=== PATIENT | female | born 1970 | race Caucasian/White ===

== ENCOUNTER → 2019-10-29 | Outpatient (CLI) | payer BC ==
[~2019-10-29] MED LIST: CRANBERRY250 MG PO; HYDCHL25 PO; HYDR1TAB94 PO; Hair, Skin & N1 EACH PO; Percocet 7.5-31 EACH PO
[2019-10-29 10:46] LABS: BASOPHILS ABSOLUTE AUTO 0.03 K/mm3 (0.00-0.23); BASOPHILS PERCENT AUTO 0 % (0-2); EOSINOPHILS PERCENT AUTO 3 % (0-6); Hematocrit 35.1 % (33.0-51.0); Hemoglobin 11.1 g/dL (11.5-16.0); IMMATURE GRAN ABSOLUTE AUTO 0.02 K/mm3 (0.00-0.10); IMMATURE GRAN PERCENT AUTO 0 % (0-1); LYMPHOCYTES ABSOLUTE AUTO 1.39 K/mm3 (0.84-5.20); LYMPHOCYTES PERCENT AUTO 17 % (21-46); MONOCYTES ABSOLUTE AUTO 0.35 K/mm3 (0.16-1.47); MONOCYTES PERCENT AUTO 4 % (4-13); Mean Corpuscular HGB 25.3 pg (26.0-34.0); Mean Corpuscular HGB Conc 31.6 g/dL (31.5-36.5); Mean Corpuscular Volume 80 fL (80-100); Mean Platelet Volume 9.8 fL (9.1-12.4); NEUTROPHILS ABSOLUTE AUTO 6.02 K/mm3 (1.96-9.15); NEUTROPHILS PERCENT AUTO 75 % (41-73); Platelet Count 306 K/mm3 (150-400); RDW Coefficient Variation 16.2 % (11.7-14.2); RDW Standard Deviation 46.6 fL (35.1-46.3); Red Blood Cell Count 4.39 M/mm3 (3.80-5.20); White Blood Cell Count 8.01 K/mm3 (4.00-11.30)
[2019-10-29 10:56] LABS: Alanine Aminotransfer (ALT/SGP 23 U/L (12-78); Albumin, Blood 3.5 g/dL (3.4-5.0); Albumin/Globulin Ratio 0.8 (0.8-1.8); Alk Phos 65 U/L (40-126); Anion Gap 11 mmol/L (6-16); Aspartate Aminotrans (AST/SGOT 38 U/L (12-37); Bilirubin, Total 0.3 mg/dL (0.1-1.0); Blood Urea Nitrogen 6 mg/dL (8-24); Bun/Creatinine Ratio 9.2 (12.0-20.0); CO2, Blood 25 mmol/L (21-32); Calcium, Blood 8.2 mg/dL (8.5-10.1); Chloride, Blood 106 mmol/L (98-108); Creatinine, Blood 0.65 mg/dL (0.40-1.00); Globulin, Blood 4.3 g/dL (2.2-4.0); Glomerular Filtration Rate >60 (60-); Glucose, Blood 114 mg/dL (70-99); Potassium, Blood 3.7 mmol/L (3.5-5.5); Sodium, Blood 142 mmol/L (136-145); Total Protein, Blood 7.8 g/dL (6.4-8.2)
== END | disposition home or self-care (01) ==
LOC: LAB SHORT 10:42 → LAB EV 10:42
PROVIDERS: Physician Assistant
DX: R06.02 Shortness of breath (principal)
CPT/HCPCS: 80053; 85025; 85379; U0003

== ENCOUNTER 2019-11-15 18:49 | Emergency (ER) | payer BC, OTHER ==
[~2019-11-15] VITALS: Ht 162.6 cm; Wt 158.8 kg
[2019-11-15] MEDS ORDERED: ALBU90OI INH (19:25)
[2019-11-15] MEDS ORDERED: PRED20 PO (21:30)
== END 2019-11-15 23:01 | disposition home or self-care (01) ==
LOC: ER 18:49
DX: J98.01 Acute bronchospasm (principal); I10 Essential (primary) hypertension; Z88.0 Allergy status to penicillin; Z88.5 Allergy status to narcotic agent; Z88.6 Allergy status to analgesic agent; Z88.8 Allergy status to other drugs, medicaments and biological substances; Z79.899 Other long term (current) drug therapy
CPT/HCPCS: 71260; 93005; 93010; 94644; 96374-59; 99285-25; J2930; Q9967

== ENCOUNTER 2019-11-21 17:13 | Observation (INO) | payer BC ==
[~2019-11-21] VITALS: Ht 162.6 cm; Wt 160.5 kg
[~2019-11-21 17:13] MED LIST changes: +ALBU90OI INH; +Daily Multiple1 EACH PO; -HYDCHL25 PO; -Hair, Skin & N1 EACH PO; +LISI5 PO; +PRED20 PO
[2019-11-21 17:56] LABS: BASOPHILS ABSOLUTE AUTO 0.04 K/mm3 (0.00-0.23); BASOPHILS PERCENT AUTO 0 % (0-2); EOSINOPHILS PERCENT AUTO 1 % (0-6); Hematocrit 36.7 % (33.0-51.0); Hemoglobin 11.4 g/dL (11.5-16.0); IMMATURE GRAN ABSOLUTE AUTO 0.05 K/mm3 (0.00-0.10); IMMATURE GRAN PERCENT AUTO 1 % (0-1); LYMPHOCYTES ABSOLUTE AUTO 2.18 K/mm3 (0.84-5.20); LYMPHOCYTES PERCENT AUTO 21 % (21-46); MONOCYTES ABSOLUTE AUTO 0.61 K/mm3 (0.16-1.47); MONOCYTES PERCENT AUTO 6 % (4-13); Mean Corpuscular HGB 24.7 pg (26.0-34.0); Mean Corpuscular HGB Conc 31.1 g/dL (31.5-36.5); Mean Corpuscular Volume 80 fL (80-100); Mean Platelet Volume 10.1 fL (9.1-12.4); NEUTROPHILS ABSOLUTE AUTO 7.47 K/mm3 (1.96-9.15); NEUTROPHILS PERCENT AUTO 71 % (41-73); Platelet Count 327 K/mm3 (150-400); RDW Coefficient Variation 15.8 % (11.7-14.2); RDW Standard Deviation 45.1 fL (35.1-46.3); Red Blood Cell Count 4.61 M/mm3 (3.80-5.20); White Blood Cell Count 10.45 K/mm3 (4.00-11.30)
[2019-11-21 18:11] LABS: Alanine Aminotransfer (ALT/SGP 20 U/L (12-78); Albumin, Blood 3.3 g/dL (3.4-5.0); Albumin/Globulin Ratio 0.8 (0.8-1.8); Alk Phos 59 U/L (50-136); Anion Gap 10 mmol/L (6-16); Aspartate Aminotrans (AST/SGOT 29 U/L (12-37); Bilirubin, Total 0.3 mg/dL (0.1-1.0); Blood Urea Nitrogen 8 mg/dL (8-24); Bun/Creatinine Ratio 12.4 (12.0-20.0); CO2, Blood 23 mmol/L (21-32); Calcium, Blood 8.4 mg/dL (8.5-10.1); Chloride, Blood 105 mmol/L (98-108); Creatinine, Blood 0.64 mg/dL (0.40-1.00); Globulin, Blood 4.2 g/dL (2.2-4.0); Glomerular Filtration Rate >60 (60-); Glucose, Blood 97 mg/dL (70-99); Potassium, Blood 3.6 mmol/L (3.5-5.5); Sodium, Blood 138 mmol/L (136-145); Total Protein, Blood 7.5 g/dL (6.4-8.2); Troponin I <0.015 ng/mL (0.000-0.040)
[2019-11-21] MEDS ORDERED: FERSU300 PO (18:11)
[2019-11-21] MEDS ORDERED: IBUP400 PO (18:12)
[2019-11-21] MEDS ORDERED: ACET500 PO (18:12)
--- NOTE | 2019-11-21 22:25 | NUR ---
PT ARRIVED TO ROOM AROUND 2100. PT SOB WITH EXERTION, INSTRUCTED TO CALL WHEN SHE NEEDS TO USE BATHROOM. CALL LIGHT IN PLACE. BP WAS HIGH AND PT MEDICATED PER ORDERS; WCTM. PT ORIENTED TO ROOM. NO FURTHER CONCERNS AT THIS TIME.
[2019-11-22 00:58] LABS: BASOPHILS ABSOLUTE AUTO 0.03 K/mm3 (0.00-0.23); BASOPHILS PERCENT AUTO 0 % (0-2); EOSINOPHILS ABSOLUTE AUTO 0.15 K/mm3 (0.00-0.68); EOSINOPHILS PERCENT AUTO 2 % (0-6); Hematocrit 34.1 % (33.0-51.0); Hemoglobin 10.7 g/dL (11.5-16.0); IMMATURE GRAN ABSOLUTE AUTO 0.04 K/mm3 (0.00-0.10); IMMATURE GRAN PERCENT AUTO 0 % (0-1); LYMPHOCYTES ABSOLUTE AUTO 2.76 K/mm3 (0.84-5.20); LYMPHOCYTES PERCENT AUTO 29 % (21-46); MONOCYTES ABSOLUTE AUTO 0.61 K/mm3 (0.16-1.47); MONOCYTES PERCENT AUTO 6 % (4-13); Mean Corpuscular HGB 25.2 pg (26.0-34.0); Mean Corpuscular HGB Conc 31.4 g/dL (31.5-36.5); Mean Corpuscular Volume 80 fL (80-100); Mean Platelet Volume 9.5 fL (9.1-12.4); NEUTROPHILS ABSOLUTE AUTO 5.94 K/mm3 (1.96-9.15); NEUTROPHILS PERCENT AUTO 62 % (41-73); Platelet Count 272 K/mm3 (150-400); RDW Coefficient Variation 15.9 % (11.7-14.2); RDW Standard Deviation 45.4 fL (35.1-46.3); Red Blood Cell Count 4.25 M/mm3 (3.80-5.20); White Blood Cell Count 9.53 K/mm3 (4.00-11.30)
[2019-11-22 01:15] LABS: Anion Gap 8 mmol/L (6-16); Blood Urea Nitrogen 8 mg/dL (8-24); Bun/Creatinine Ratio 12.1 (12.0-20.0); CO2, Blood 27 mmol/L (21-32); Calcium, Blood 8.1 mg/dL (8.5-10.1); Chloride, Blood 105 mmol/L (98-108); Creatinine, Blood 0.66 mg/dL (0.40-1.00); Glomerular Filtration Rate >60 (60-); Glucose, Blood 97 mg/dL (70-99); Potassium, Blood 3.1 mmol/L (3.5-5.5); Sodium, Blood 140 mmol/L (136-145)
--- NOTE | 2019-11-22 04:04 | NUR ---
SHIFT SUMMARY PT IS A/O X4 AND IND, ALTHOUGH WE HAVE BEEN PROVIDING SBA WHEN UP TO BATHROOM BECAUSE OF INCR. SOB WITH EXERTION. PT HAS BEEN ON RA WITH O2 SATURATION MID-HIGH 90'S. BIOX IN PLACE. PT DOES HAVE HTN AND HAS BEEN MEDICATED PER ORDERS PRN. PT REPORTS HER SBP IS NORMALLY AROUND 140-150. PT DOES HAVE EDEMA IN BOTH LEGS WHICH SHE REPORTS STARTED ABOUT TWO WEEKS AGO WHICH CORRELATES WITH WHEN HER SOB STARTED. PLAN IS TO HAVE ECHO TODAY. NO ACUTE CHANGES OVERNIGHT. ASSISTED WITH ADLS PRN. WCTM.
--- NOTE | 2019-11-22 09:16 | NUR ---
The pt would like to have a permanent PCP with [facility]. States that she was with [facility] but then went back to her PCP in [place], and now seeks care through the [facility]. Attempted to call Alexandrea Blake for new patient packet application, but there was no answer.
[2019-11-22 12:45] LABS: Percent Saturation 8.6 % (15.0-50.0)
--- NOTE | 2019-11-22 16:55 | NUR ---
TELEPHONE CALL WITH HOSPITALIST RE PT STATUS OF BP SINCE CHANGE/ADDITION MEDICATIONS; AMBULATED IN ROOM AND IN HALLWAY; PT STABLE. NEW ORDER RECEIVED FOR TRANSFER TO MEDICAL FLOOR NO TELE.
--- NOTE | 2019-11-22 18:17 | NUR ---
SHIFT SUMMARY A/O X4, BP IMPROVED T/O SHIFT W/ NEW TREATMENTS GIVEN PER EMAR. TOLERATING PO, NO N/V, AMBULATING WELL, TELE DC'D, AWAITING TRANSFER TO MEDICAL. WILL REPORT TO KATHY PRICE.
--- NOTE | 2019-11-23 06:06 | NUR ---
SHIFT SUMMARY PT A&O; VSS; DENIES CHEST PAIN; PT STATES SOB HAS IMPROVED; O2 SATS >93 ON RA; PT C/O CHRONIC KNEE PAIN; PROVIDER NOTIFIED AT START OF SHIFT, NEW ORDER FOR NORCO GIVEN; ADMINISTERED 2X THIS SHIFT; PT DENIED HEAT/ICE; INDEPENDENT IN ROOM; PARTICIPATED IN SLEEP STUDY PER RT; PT DENIES NEEDS AT THIS TIME; CALL LIGHT IN REACH; BED IN LOWEST POSITION; WILL CONTINUE TO MONITOR CLOSELY UNTIL HAND OFF TO DAY SHIFT RN.
[2019-11-23 08:13] LABS: Anion Gap 8 mmol/L (6-16); Blood Urea Nitrogen 10 mg/dL (8-24); Bun/Creatinine Ratio 14.8 (12.0-20.0); CO2, Blood 26 mmol/L (21-32); Calcium, Blood 8.5 mg/dL (8.5-10.1); Chloride, Blood 103 mmol/L (98-108); Creatinine, Blood 0.68 mg/dL (0.40-1.00); Glomerular Filtration Rate >60 (60-); Glucose, Blood 102 mg/dL (70-99); Potassium, Blood 3.8 mmol/L (3.5-5.5); Sodium, Blood 137 mmol/L (136-145)
--- NOTE | 2019-11-23 10:52 | NUR ---
TRANSFER PT TRANSFERRED TO ROOM 303. REPORT CALL TO ARIADNA PRICE. PT IS A&O X4, VSS, DENIES SOB AT REST.
[2019-11-23] MEDS ORDERED: ZESTORETIC 20-1 EAC1 PO (16:16)
[2019-11-23] MEDS ORDERED: DOCU100 PO (16:17)
[2019-11-23] MEDS ORDERED: HYDACE10B PO (16:18)
[2019-11-23] MEDS ORDERED: METO25ER PO (16:19)
--- NOTE | 2019-11-23 17:32 | NUR ---
DISCHARGE SUMMARY RECEIVED REPROT FROM ALBERT CALDWELL IN PCU; PT TO ROOM AT 1040; IND TRANSFERED TO BED. PT ORIENTED TO UNIT. PT A&Ox4; CALM AND COOPERATIVE WITH CARE. PT UP IN CHAIR FOR MAJORITY OF SHIFT. PT REPORTS LEFT KNEE AND BACK PAIN, MEDICATED x1 WITH NORCO WITH POSITIVE RESULTS. PT REPORTS MILD SOB WITH EXERTION, STATES IT IS "BETTER" SINCE ADMISSION. PT DENIES CHEST PAIN/PRESSURE, NAUSEA AND DIZZINES T/O SHIFT. VSS. NO OTHER ACUTE CHANGES NOTED DURING SHIFT. PT EDUCATED ON DISCHARGE INSTRUCTIONS, MEDICATIONS, AND FOLLOW UP APPOINTMENTS. PT PLANS TO FOLLOW UP WITH [facility] AND ESTABLISH AND PCP WITH THEM. PRESCRIPTIONS CALLED INTO [facility] PER PT REQUEST. PT EDUCATED TO HAVE PCP FOLLOW UP FOR A SLEEP STUDY AND IRON DEFICENT ANEMIA STUDY. PT LEFT ROOM ON FOOT AT APPROX 1730. PT STABLE UPON DISCHARGE.
== END 2019-11-23 17:30 | disposition home or self-care (01) ==
LOC: ER 17:13 → PCU 17:14 → MEDS 11-23 10:46
PROVIDERS: Emergency Medicine; Internal Medicine; Nurse Practitioner Acute Care; ADMIT Internal Medicine
DX: R06.09 Other forms of dyspnea (principal); I10 Essential (primary) hypertension; E66.01 Morbid (severe) obesity due to excess calories; G47.33 Obstructive sleep apnea (adult) (pediatric); D50.9 Iron deficiency anemia, unspecified; Z88.5 Allergy status to narcotic agent; Z88.6 Allergy status to analgesic agent; Z79.899 Other long term (current) drug therapy
CPT/HCPCS: 36415; 71045; 80048; 80053; 82728; 83540; 83550; 83880; 84484; 85025; 93005; 93010; 94762; 96372; 96374; 96375; 96376; 99285-25; A9270; A9270-GY; C8929; G0378; J0360; J1650; Q9957

== ENCOUNTER → 2020-04-24 | Outpatient (CLI) | payer BC ==
[~2020-04-24] MED LIST changes: +ACET500 PO; +DOCU100 PO; +FERSU300 PO; +HYDACE10B PO; +IBUP400 PO; +METO25ER PO; +ZESTORETIC 20-1 EAC1 PO
[2020-04-24 12:12] LABS: BASOPHILS ABSOLUTE AUTO 0.03 K/mm3 (0.00-0.23); BASOPHILS PERCENT AUTO 0 % (0-2); EOSINOPHILS PERCENT AUTO 1 % (0-6); Hematocrit 35.9 % (33.0-51.0); Hemoglobin 11.5 g/dL (11.5-16.0); IMMATURE GRAN ABSOLUTE AUTO 0.03 K/mm3 (0.00-0.10); IMMATURE GRAN PERCENT AUTO 0 % (0-1); LYMPHOCYTES ABSOLUTE AUTO 1.64 K/mm3 (0.84-5.20); LYMPHOCYTES PERCENT AUTO 20 % (21-46); MONOCYTES ABSOLUTE AUTO 0.37 K/mm3 (0.16-1.47); MONOCYTES PERCENT AUTO 5 % (4-13); Mean Corpuscular HGB 25.1 pg (26.0-34.0); Mean Corpuscular Volume 78 fL (80-100); Mean Platelet Volume 10.2 fL (9.1-12.4); NEUTROPHILS PERCENT AUTO 73 % (41-73); Platelet Count 354 K/mm3 (150-400); RDW Coefficient Variation 15.4 % (11.7-14.2); RDW Standard Deviation 42.9 fL (35.1-46.3); Red Blood Cell Count 4.58 M/mm3 (3.80-5.20); White Blood Cell Count 8.07 K/mm3 (4.00-11.30)
[2020-04-24 12:22] LABS: Alanine Aminotransfer (ALT/SGP 24 U/L (12-78); Albumin, Blood 3.4 g/dL (3.4-5.0); Albumin/Globulin Ratio 0.7 (0.8-1.8); Alk Phos 54 U/L (40-126); Amylase, Blood 50 U/L (25-115); Anion Gap 11 mmol/L (6-16); Aspartate Aminotrans (AST/SGOT 29 U/L (12-37); Bilirubin, Total 0.3 mg/dL (0.1-1.0); Blood Urea Nitrogen 11 mg/dL (8-24); Bun/Creatinine Ratio 15.7 (12.0-20.0); CO2, Blood 27 mmol/L (21-32); Calcium, Blood 9.1 mg/dL (8.5-10.1); Chloride, Blood 102 mmol/L (98-108); Globulin, Blood 4.8 g/dL (2.2-4.0); Glomerular Filtration Rate >60 (60-); Glucose, Blood 105 mg/dL (70-99); Potassium, Blood 3.7 mmol/L (3.5-5.5); Sodium, Blood 140 mmol/L (136-145); Total Protein, Blood 8.2 g/dL (6.4-8.2)
== END | disposition home or self-care (01) ==
LOC: LAB EV 12:06 → LAB SHORT 12:06
PROVIDERS: General Practice
DX: E86.0 Dehydration (principal)
CPT/HCPCS: 80053; 82150; 85025

== ENCOUNTER → 2020-04-24 | Outpatient (CLI) | payer BC | END | disposition home or self-care (01) | LOC: LAB EV 12:18 → LAB SHORT 12:18 | DX: R19.7 Diarrhea, unspecified (principal); Z20.828 Contact with and (suspected) exposure to other viral communicable diseases | CPT/HCPCS: U0003 ==

== ENCOUNTER 2020-10-06 13:19 | Emergency (ER) | payer BC ==
[~2020-10-06] VITALS: Ht 162.6 cm; Wt 161.5 kg
[2020-10-06] MEDS ORDERED: MELO7.5 PO (14:14)
[2020-10-06] MEDS ORDERED: SPIRONOLACTONE25 MG PO (14:15)
[2020-10-06 14:24] LABS: BASOPHILS ABSOLUTE AUTO 0.04 K/mm3 (0.00-0.23); BASOPHILS PERCENT AUTO 0 % (0-2); EOSINOPHILS PERCENT AUTO 1 % (0-6); Hematocrit 36.3 % (33.0-51.0); Hemoglobin 12.9 g/dL (11.5-16.0); IMMATURE GRAN ABSOLUTE AUTO 0.03 K/mm3 (0.00-0.10); IMMATURE GRAN PERCENT AUTO 0 % (0-1); LYMPHOCYTES ABSOLUTE AUTO 2.45 K/mm3 (0.84-5.20); LYMPHOCYTES PERCENT AUTO 24 % (21-46); MONOCYTES ABSOLUTE AUTO 0.65 K/mm3 (0.16-1.47); MONOCYTES PERCENT AUTO 6 % (4-13); Mean Corpuscular HGB 28.9 pg (26.0-34.0); Mean Corpuscular HGB Conc 35.5 g/dL (31.5-36.5); Mean Corpuscular Volume 81 fL (80-100); Mean Platelet Volume 9.7 fL (9.1-12.4); NEUTROPHILS ABSOLUTE AUTO 6.82 K/mm3 (1.96-9.15); NEUTROPHILS PERCENT AUTO 68 % (41-73); Platelet Count 344 K/mm3 (150-400); RDW Coefficient Variation 15.5 % (11.7-14.2); RDW Standard Deviation 45.1 fL (35.1-46.3); Red Blood Cell Count 4.47 M/mm3 (3.80-5.20); White Blood Cell Count 10.09 K/mm3 (4.00-11.30)
[2020-10-06 14:43] LABS: Alanine Aminotransfer (ALT/SGP 24 U/L (12-78); Albumin, Blood 3.1 g/dL (3.4-5.0); Albumin/Globulin Ratio 0.6 (0.8-1.8); Alk Phos 61 U/L (50-136); Anion Gap 6 mmol/L (6-16); Aspartate Aminotrans (AST/SGOT 24 U/L (12-37); Bilirubin, Total 0.2 mg/dL (0.1-1.0); Blood Urea Nitrogen 15 mg/dL (8-24); CO2, Blood 29 mmol/L (21-32); Calcium, Blood 9.4 mg/dL (8.5-10.1); Chloride, Blood 104 mmol/L (98-108); Creatinine, Blood 0.88 mg/dL (0.40-1.00); Globulin, Blood 4.8 g/dL (2.2-4.0); Glomerular Filtration Rate >60 (60-); Glucose, Blood 100 mg/dL (70-99); Potassium, Blood 3.4 mmol/L (3.5-5.5); Sodium, Blood 139 mmol/L (136-145); Total Protein, Blood 7.9 g/dL (6.4-8.2); Troponin I <0.015 ng/mL (0.000-0.040)
[2020-10-06] MEDS ORDERED: COMPAZINE10 MG PO (15:38)
== END 2020-10-06 15:57 | disposition home or self-care (01) ==
LOC: ER 13:19
PROVIDERS: Physician Assistant
DX: G43.909 Migraine, unspecified, not intractable, without status migrainosus (principal); I10 Essential (primary) hypertension; Z79.899 Other long term (current) drug therapy
CPT/HCPCS: 36415; 70450; 80053; 84484; 85025; 93005; 93010; 96374; 99284-25; J1885

== ENCOUNTER 2021-06-18 21:41 | Emergency (ER) | payer BC ==
[~2021-06-18] VITALS: Ht 165.1 cm; Wt 170.1 kg
[~2021-06-18 21:41] MED LIST changes: +COMPAZINE10 MG PO; +MELO7.5 PO; +SPIRONOLACTONE25 MG PO
[2021-06-19] MEDS ORDERED: CYCL10 PO (03:17)
== END 2021-06-19 04:17 | disposition home or self-care (01) ==
LOC: ER 21:41
DX: S50.02XA Contusion of left elbow, initial encounter (principal); S30.1XXA Contusion of abdominal wall, initial encounter; M54.2 Cervicalgia; M25.511 Pain in right shoulder; Z88.0 Allergy status to penicillin; Z88.5 Allergy status to narcotic agent; Z79.899 Other long term (current) drug therapy; V89.2XXA Person injured in unspecified motor-vehicle accident, traffic, initial encounter
CPT/HCPCS: 70450; 71045; 72125; 73030; 73070; 74177; A9270; J2405; Q9967

== ENCOUNTER → 2022-02-01 | Outpatient (CLI) | payer BC ==
[~2022-02-01] MED LIST changes: +CYCL10 PO
[2022-02-01 17:17] LABS: Hematocrit 33.6 % (33.0-51.0); Hemoglobin 10.3 g/dL (11.5-16.0)
[2022-02-01 17:40] LABS: Percent Saturation 8.5 % (15.0-50.0)
== END | disposition home or self-care (01) ==
LOC: LAB 16:35 → LAB SHORT 16:35
PROVIDERS: Internal Medicine Gastroenterology
DX: Z12.11 Encounter for screening for malignant neoplasm of colon (principal)
CPT/HCPCS: 36415; 82728; 83540; 83550; 85014; 85018

== ENCOUNTER 2022-02-18 07:18 | Day surgery (SDC) | payer BC ==
[~2022-02-18] VITALS: Ht 162.6 cm; Wt 166.0 kg
[~2022-02-18 07:18] MED LIST changes: +FLUTICASONE-SA1 EAC1 INH; +FURO20 PO; +Norco 7.5-3251 EACH PO; +PROM25 PO; +TRAZ50 PO; +ZOFRAN8 MG PO
--- NOTE | 2022-02-18 07:33 | NUR ---
Ambulatory in Day Surgery History, Chart, Medications and Allergies reviewed before start of procedure. Pre-Op teaching done. Pt verbalizes understanding. Patient States Post-Procedure ride home has been arranged.
--- NOTE | 2022-02-18 09:07 | NUR ---
02/18/22 0907 Tamara Dawn History, Chart, Medications and Allergies reviewed before start of procedure.Pre-Op teaching done. Patient verbalizes understanding. Patient states colon prep results clear.DR SALAS PROVIDING ANESTESIA
--- NOTE | 2022-02-18 10:13 | NUR ---
Discharge instructions reviewed with patient. Patient verbalizes understanding. Copy given to patient to take home. Discharged via wheelchair to private car for ride home.
== END 2022-02-18 23:24 | disposition home or self-care (01) ==
LOC: ORSCMMR 07:18 → ORD 09:45 → ORSCMMR 09:45
PROVIDERS: Internal Medicine Gastroenterology
PROC: 0DJD8ZZ Inspection of Lower Intestinal Tract, Via Natural or Artificial Opening Endoscopic (ICD-10-PCS; principal; 2022-02-18 09:00)
DX: Z12.11 Encounter for screening for malignant neoplasm of colon (principal); E66.01 Morbid (severe) obesity due to excess calories; Z68.44 Body mass index [BMI] 60.0-69.9, adult; K57.30 Diverticulosis of large intestine without perforation or abscess without bleeding; J45.909 Unspecified asthma, uncomplicated; Z79.899 Other long term (current) drug therapy; I10 Essential (primary) hypertension; I27.20 Pulmonary hypertension, unspecified
CPT/HCPCS: J2704; J7120

== ENCOUNTER → 2022-03-03 | Outpatient (CLI) | payer BC ==
[2022-03-04 13:24] LABS: Stool Occult Bld Immuno 1 Negative (NEGATIVE); Stool Occult Bld Immuno 2 Negative (NEGATIVE)
== END | disposition home or self-care (01) ==
LOC: LAB SHORT 10:43
PROVIDERS: Internal Medicine Gastroenterology
DX: D50.9 Iron deficiency anemia, unspecified (principal)
CPT/HCPCS: 82274

== ENCOUNTER 2023-02-07 06:43 | Inpatient (IN) | payer SELFPAY ==
[~2023-02-07] VITALS: Ht 162.6 cm; Wt 174.1 kg
[2023-02-07 07:44] LABS: BASOPHILS ABSOLUTE AUTO 0.03 K/mm3 (0.00-0.23); BASOPHILS PERCENT AUTO 0 % (0-2); EOSINOPHILS ABSOLUTE AUTO 0.12 K/mm3 (0.00-0.68); EOSINOPHILS PERCENT AUTO 1 % (0-6); Hematocrit 32.4 % (33.0-51.0); IMMATURE GRAN ABSOLUTE AUTO 0.02 K/mm3 (0.00-0.10); IMMATURE GRAN PERCENT AUTO 0 % (0-1); LYMPHOCYTES ABSOLUTE AUTO 1.55 K/mm3 (0.84-5.20); LYMPHOCYTES PERCENT AUTO 17 % (21-46); MONOCYTES ABSOLUTE AUTO 0.48 K/mm3 (0.16-1.47); MONOCYTES PERCENT AUTO 5 % (4-13); Mean Corpuscular HGB 22.7 pg (26.0-34.0); Mean Corpuscular HGB Conc 30.9 g/dL (31.5-36.5); Mean Corpuscular Volume 74 fL (80-100); Mean Platelet Volume 9.7 fL (9.1-12.4); NEUTROPHILS PERCENT AUTO 76 % (41-73); Platelet Count 362 K/mm3 (150-400); RDW Coefficient Variation 16.8 % (11.7-14.2); RDW Standard Deviation 44.5 fL (35.1-46.3)
[2023-02-07 08:12] LABS: Albumin/Globulin Ratio 0.7 (0.8-1.8); Bilirubin, Total 0.3 mg/dL (0.1-1.0); Bun/Creatinine Ratio 8.7 (12.0-20.0); Calcium, Blood 8.8 mg/dL (8.5-10.1); Creatinine, Blood 0.8 mg/dL (0.40-1.00); Globulin, Blood 4.3 g/dL (2.2-4.0); Potassium, Blood 3.6 mmol/L (3.5-5.5); Total Protein, Blood 7.3 g/dL (6.4-8.2)
[2023-02-07 08:38] LABS: Adenovirus Not Detected (NOT DETECT); Coronavirus 229E Not Detected (NOT DETECT); Coronavirus HKU1 Not Detected (NOT DETECT); Coronavirus NL63 Not Detected (NOT DETECT); Coronavirus OC43 Not Detected (NOT DETECT); SARS-Cov-2 (COVID-19), BioFire Not Detected (NOT DETECT)
[2023-02-07 08:39] LABS: Bordetella pertussis Not Detected (NOT DETECT); Chlamydophila pneumoniae Not Detected (NOT DETECT); Human Metapneumovirus Not Detected (NOT DETECT); Human Rhinovirus/Enterovirus Not Detected (NOT DETECT); Influenza A/2009-H1 Not Detected (NOT DETECT); Influenza A/H1 Not Detected (NOT DETECT); Influenza A/H3 Not Detected (NOT DETECT); Influenza B Not Detected (NOT DETECT); Mycoplasma pneumoniae Not Detected (NOT DETECT); Parainfluenza Virus 1 Not Detected (NOT DETECT); Parainfluenza Virus 2 Not Detected (NOT DETECT); Parainfluenza Virus 3 Not Detected (NOT DETECT); Parainfluenza Virus 4 Not Detected (NOT DETECT); Respiratory Syncytial Virus Not Detected (NOT DETECT)
[2023-02-07 12:59] VITALS: BP 145/79
[2023-02-07] MEDS ORDERED: Norco 10-325 T1 EACH PO (13:03)
[2023-02-07 15:48] VITALS: BP 161/84
--- NOTE | 2023-02-07 17:06 | NUR ---
SHIFT SUMMARY PT A NEW ADMIT TODAY FROM THE ED WITH AN ASTHMA EXACERBATION. PT ARRIVED ON 4L NC AND IS NOW AT 2L, SATING >90%. SHE DOES NOT USE OXYGEN REGULARLY AT HOME. THE PT ARRIVED WITH A PRETTY BAD VEGA AND NAUSEA, MEDICATED PER THE EMAR FOR BOTH AND THE PT IS TOLERATING IT WELL. PT IS SBA OF NOW DUE TO HER SOB WITH EXERCTION. SHE MAKES HER NEEDS KNOWN, AOX4. 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 FIRE SAFETY PROCEDURES AND PROTOCOLS DISCUSSED WITH PT AND SHE ACKNOWLEGED THOSE VERBALLY. CALL LIGHT WTIHIN REACH, BED IN THE LOWEST POSITION. WILL REPORT TO ONCOMING NURSE.
[2023-02-07 20:12] VITALS: BP 120/69
[2023-02-08 05:12] VITALS: BP 140/82
[2023-02-08 06:48] LABS: BASOPHILS ABSOLUTE AUTO 0.02 K/mm3 (0.00-0.23); BASOPHILS PERCENT AUTO 0 % (0-2); EOSINOPHILS PERCENT AUTO 0 % (0-6); Hematocrit 31.1 % (33.0-51.0); Hemoglobin 9.6 g/dL (11.5-16.0); IMMATURE GRAN ABSOLUTE AUTO 0.05 K/mm3 (0.00-0.10); IMMATURE GRAN PERCENT AUTO 0 % (0-1); LYMPHOCYTES ABSOLUTE AUTO 1.72 K/mm3 (0.84-5.20); LYMPHOCYTES PERCENT AUTO 14 % (21-46); MONOCYTES ABSOLUTE AUTO 0.92 K/mm3 (0.16-1.47); MONOCYTES PERCENT AUTO 8 % (4-13); Mean Corpuscular HGB Conc 30.9 g/dL (31.5-36.5); Mean Corpuscular Volume 74 fL (80-100); Mean Platelet Volume 9.8 fL (9.1-12.4); NEUTROPHILS ABSOLUTE AUTO 9.35 K/mm3 (1.96-9.15); NEUTROPHILS PERCENT AUTO 78 % (41-73); Platelet Count 335 K/mm3 (150-400); RDW Coefficient Variation 17.2 % (11.7-14.2); RDW Standard Deviation 46.2 fL (35.1-46.3); Red Blood Cell Count 4.18 M/mm3 (3.80-5.20); White Blood Cell Count 12.06 K/mm3 (4.00-11.30)
[2023-02-08 07:06] LABS: Bun/Creatinine Ratio 14.8 (12.0-20.0); Calcium, Blood 8.7 mg/dL (8.5-10.1); Creatinine, Blood 0.94 mg/dL (0.40-1.00); Potassium, Blood 3.6 mmol/L (3.5-5.5)
[2023-02-08 07:17] VITALS: BP 148/85
[2023-02-08 15:31] VITALS: BP 145/92
--- NOTE | 2023-02-08 17:19 | NUR ---
SHIFT SUMMARY PT AOX4, INDEPENDENT IN THE ROOM. ON RA AT THIS TIME AND SATING >90%. PT HAS C/O PAIN THIS SHIFT, ALONG WITH NAUSEA, MEDICATED PER THE EMAR. PT CALLS WELL AND MAKES HER NEEDS KNOWN. NO ACUTE CHANGES AND PT APPEARS TO BE IMPROVING. FIRE SAFETY PROTOCOLS AND PROCEDURES DISCUSSED AND PT VERBALLY AGREED. CALL LIGHT WITHIN REACH, BED IN THE LOWEST POSITION. WILL REPORT TO ONCOMING NURSE.
[2023-02-08 19:23] VITALS: BP 140/75
--- NOTE | 2023-02-09 03:48 | NUR ---
SHIFT SUMMARY- PT ALERT, ORIENTED AND INDEPEDNENT IN THE ROOM. PT HAS NOT SLEPT PER HER REPORT, ON EACH ROUDING SHE HAS APPEARED TO BE WIDE AWAKE, DESPITE TAKING THE TRAZADONE. PT CURRENTLY IN BED, CALL LIGHT IN REACH NO S&S OF DISTRESS. POSSIBLE DC LATER TODAY.
[2023-02-09 04:27] VITALS: BP 157/80
[2023-02-09 06:01] LABS: BASOPHILS ABSOLUTE AUTO 0.02 K/mm3 (0.00-0.23); BASOPHILS PERCENT AUTO 0 % (0-2); EOSINOPHILS PERCENT AUTO 0 % (0-6); Hematocrit 31.7 % (33.0-51.0); Hemoglobin 9.8 g/dL (11.5-16.0); IMMATURE GRAN ABSOLUTE AUTO 0.07 K/mm3 (0.00-0.10); IMMATURE GRAN PERCENT AUTO 1 % (0-1); LYMPHOCYTES ABSOLUTE AUTO 2.04 K/mm3 (0.84-5.20); LYMPHOCYTES PERCENT AUTO 16 % (21-46); MONOCYTES ABSOLUTE AUTO 0.76 K/mm3 (0.16-1.47); MONOCYTES PERCENT AUTO 6 % (4-13); Mean Corpuscular HGB 23.2 pg (26.0-34.0); Mean Corpuscular HGB Conc 30.9 g/dL (31.5-36.5); Mean Corpuscular Volume 75 fL (80-100); Mean Platelet Volume 9.9 fL (9.1-12.4); NEUTROPHILS ABSOLUTE AUTO 10.27 K/mm3 (1.96-9.15); NEUTROPHILS PERCENT AUTO 78 % (41-73); Platelet Count 355 K/mm3 (150-400); RDW Coefficient Variation 17.2 % (11.7-14.2); Red Blood Cell Count 4.23 M/mm3 (3.80-5.20); White Blood Cell Count 13.16 K/mm3 (4.00-11.30)
[2023-02-09 06:26] LABS: Bun/Creatinine Ratio 22.1 (12.0-20.0); Calcium, Blood 9.1 mg/dL (8.5-10.1); Potassium, Blood 4.2 mmol/L (3.5-5.5)
[2023-02-09 07:29] VITALS: BP 145/86
[2023-02-09] MEDS ORDERED: ALBU90OI INH (14:58)
[2023-02-09] MEDS ORDERED: DULERA 100 MCG/13 GM INH (15:03)
[2023-02-09] MEDS ORDERED: PRED20 PO (15:03)
--- NOTE | 2023-02-09 16:15 | NUR ---
DISCHARGE SUMMARY PT AxOx4. PLEASANT AND COOPERATIVE WITH CARE. PT REPORTS PAIN TO L KNEE (CHRONIC), AND WAS MEDICATED PER EMAR. LS CLEAR T/O. PT RECEIVED BREATHING TX THIS SHIFT. SHE WAS ALSO COUGHING QUITE A BIT ON AND OFF, BUT DECLINED NEED FOR COUGH MEDS, PREFERRING COOL WATER FOR RELIEF. PT WAS DC'ING HOME TODAY WITH SELF. SHE WAS GIVEN DC INSTRUCTIONS INCLUDING FOLLOW UP APPOINTMENT, DC MED LIST, AND PATIENT EDUCATION ON NEW MED/DIAGNOSIS. PT WAS ALSO EDUCATED ON FIRE RISK/SAFETY WITH VERBALIZED UNDERSTANDING. PT SAFELY ESCORTED OUT VIA WC WITH PHYSICIAN PRACTICE CONSULTANT.
== END 2023-02-09 16:00 | disposition home or self-care (01) | DRG 189 ==
LOC: ER 06:43 → MEDS 06:44
PROVIDERS: Emergency Medicine; ADMIT Internal Medicine
DX: J96.01 Acute respiratory failure with hypoxia (principal); J45.901 Unspecified asthma with (acute) exacerbation; Z68.44 Body mass index [BMI] 60.0-69.9, adult; E66.01 Morbid (severe) obesity due to excess calories; I10 Essential (primary) hypertension; G89.29 Other chronic pain; M19.90 Unspecified osteoarthritis, unspecified site; M25.562 Pain in left knee; Z20.822 Contact with and (suspected) exposure to COVID-19; D50.9 Iron deficiency anemia, unspecified; G43.909 Migraine, unspecified, not intractable, without status migrainosus; B34.9 Viral infection, unspecified; Z88.0 Allergy status to penicillin; Z88.5 Allergy status to narcotic agent; Z88.8 Allergy status to other drugs, medicaments and biological substances; Z79.899 Other long term (current) drug therapy; Z79.811 Long term (current) use of aromatase inhibitors; Z79.891 Long term (current) use of opiate analgesic; Z79.52 Long term (current) use of systemic steroids; Z90.49 Acquired absence of other specified parts of digestive tract; Z98.890 Other specified postprocedural states; Z91.148 Patient's other noncompliance with medication regimen for other reason
CPT/HCPCS: 0202U; 36415; 71045; 80048; 80053; 83880; 84484; 85025; 93005; 93010; 94640; 94644; 94664; 94760; 94761; 96361; 96365; 96375; 99285-25; A9270; J1650; J2405; J2920; J2930; J3475; J7030; J7512

== ENCOUNTER → 2025-06-05 | Outpatient (CLI) | payer OTHER ==
[~2025-06-05] MED LIST changes: +DULERA 100 MCG/13 GM INH; +Norco 10-325 T1 EACH PO
== END ==
LOC: LAB SHORT 12:00 → LAB 12:00
PROVIDERS: Family Medicine
DX: Z01.419 Encounter for gynecological examination (general) (routine) without abnormal findings (principal)
CPT/HCPCS: 87624; G0145